=== PATIENT | male | born 1985 | race Caucasian/White ===

== ENCOUNTER 2021-05-14 11:55 | Emergency (ER) | payer SELFPAY ==
[2021-05-14] MEDS ORDERED: LEXAPRO 10MG10 MG PO (12:43)
[2021-05-14] MEDS ORDERED: TOPROL XL 50MG50 MG PO (12:44)
[2021-05-14] MEDS ORDERED: NORVASC 10MG10 MG PO (12:44)
[2021-05-14] MEDS ORDERED: ZESTRIL40 M1 PO (12:44)
[2021-05-14 13:20] LABS: BASO # 0.03 K/mm3 (0.02-0.10); EOS # 0.37 K/mm3 (0.04-0.40); HEMATOCRIT 50.4 % (42.0-52.0); HEMOGLOBIN 17.4 g/dL (13.5-18.0); LYMPH# 1.58 K/mm3 (1.50-4.00); MEAN CELL VOLUME 87 fl (78-100); MEAN CORPUSCULAR HEMOGLOBIN 30 pg (27-31); MEAN CORPUSCULAR HGB CONC 35 g/dL (33-37); MEAN PLATELET VOLUME 10.2 fl (7.4-10.4); MONO # 0.59 K/mm3 (0.20-0.80); NEU # 4.75 K/mm3 (1.40-6.50); PLATELET COUNT 184 K/mm3 (130-400); RED BLOOD COUNT 5.78 M/mm3 (4.20-5.60); RED CELL DISTRIBUTION WIDTH 12.6 % (11.5-14.5); WHITE BLOOD COUNT 7.3 K/mm3 (4.8-10.8)
[2021-05-14 13:27] LABS: ALBUMIN 4.2 g/dL (3.5-5.0)
[2021-05-14 13:28] LABS: POTASSIUM 4.4 mmol/L (3.5-5.1)
[2021-05-14 13:29] LABS: CALCIUM 9.2 mg/dL (8.3-10.5)
[2021-05-14 13:30] LABS: TOTAL PROTEIN 7.4 g/dL (6.4-8.3)
[2021-05-14 13:32] LABS: TOTAL BILIRUBIN 0.5 mg/dL (0.2-1.2)
[2021-05-14 14:26] VITALS: BP 171/107
== END 2021-05-14 14:26 | disposition home or self-care (01) ==
LOC: ED 11:55
PROVIDERS: Internal Medicine
DX: J20.9 Acute bronchitis, unspecified (principal); I10 Essential (primary) hypertension; F17.210 Nicotine dependence, cigarettes, uncomplicated; Z20.822 Contact with and (suspected) exposure to COVID-19